=== PATIENT | male | born 1950 | race Caucasian/White ===

== ENCOUNTER 2022-02-21 06:42 | Inpatient (IN) ==
[2022-02-21] MEDS ORDERED: Ondansetron 4 MG/2 ML VIAL ONE (07:32)
[2022-02-21] MEDS ORDERED: *HR* Succinylcholine 200 MG/10 ML VIAL IVP ONE (07:32)
[2022-02-21] MEDS ORDERED: Lidocaine -MPF 2% 5 ML VIAL ONE (07:32)
[2022-02-21] MEDS: Ringers Solution, Lactated 1,000 ML IVC SCH (07:45)
[2022-02-21] MEDS ORDERED: Promethazine 6.25 MG in Water for inj. (sterile) 20 ML IVPB PRN (07:47)
[2022-02-21] MEDS ORDERED: Ondansetron 4 MG/2 ML VIAL IVP PRN ×2 (07:47→09:35)
[2022-02-21] MEDS ORDERED: *HR* HYDROmorphone PF 0.5 MG/0.5 ML SYRINGE IVP PRN (07:47)
[2022-02-21] MEDS ORDERED: *HR* OxyCODONE Immed Rel 5 MG TABLET PO PRN (07:47)
[2022-02-21] MEDS ORDERED: *HR* Propofol 200 MG/20 ML VIAL IVP ONE (08:45)
[2022-02-21] MEDS ORDERED: *HR* EPINEPHrine 1 MG/10 ML SYRINGE INTRATRACH PRN (08:58)
[2022-02-21] MEDS ORDERED: Albuterol 2.5 MG/3 ML NEBULIZER IH PRN (09:35)
[2022-02-21] MEDS ORDERED: Acetaminophen 325 MG TABLET PO PRN (09:35)
[2022-02-21] MEDS ORDERED: Naloxone 0.4 MG/ML INJ IVP PRN (09:35)
[2022-02-21] MEDS: GuaiFENesin/Codeine Oral Soln 5 ML UDC PO PRN ×2 (10:05→20:38)
[2022-02-21] MEDS: Pantoprazole 40 MG VIAL IVP SCH (10:07)
[2022-02-21 10:24] LABS: Basophils % 0.4 %; Eosinophils # 0.1 K/mcL (0.0-0.6); Hematocrit 40.2 % (37.5-50.1); Hemoglobin 13.4 g/dL (12.9-16.9); Immature Granulocytes % 0.2 % (0-4); Lymphocytes # 0.8 K/mcL (0.6-4.6); Lymphocytes % 10.5 %; Mean Corpuscular HGB Conc 33.3 g/dL (31.6-35.5); Mean Corpuscular Hemoglobin 30.1 pg (28.0-33.3); Mean Corpuscular Volume 90.3 fL (83.0-100.0); Mean Platelet Volume 9.3 fL (9.4-12.4); Monocytes # 0.3 K/mcL (0.0-1.3); Monocytes % 3.4 %; Neutrophils # 6.8 K/mcL (1.6-8.9); Platelet Count 171 K/mcL (140-400); Red Blood Count 4.45 M/mcL (4.19-5.50); Red Cell Distribution Width 12.3 % (11.5-14.5); Segmented Neutrophils % 84.5 %
[2022-02-21] MEDS: Ipratropium/Albuterol Neb 3 ML IH SCH ×3 (10:28→21:35)
[2022-02-21 10:41] LABS: BUN/Creatinine Ratio 17 (6-26); Blood Urea Nitrogen 15 mg/dL (8-23); Calcium 9.2 mg/dL (8.6-10.3); Carbon Dioxide 30 mEq/L (23-29); Chloride 104 mEq/L (98-107); Glucose 117 mg/dL (70-105); Magnesium 1.7 mg/dL (1.6-2.6); Osmolality,Calculated 288 (280-300); Phosphorous 2.7 mg/dL (2.7-4.5); Potassium 4.5 mEq/L (3.5-5.1); Sodium 138 mEq/L (136-145); eGFR For African Americans > 60 (> 60); eGFR For Non-African Americans > 60 (> 60)
[2022-02-21] MEDS ORDERED: *HR* HYDROcodone/Acet 5/325 mg TABLET PO PRN (10:43)
[2022-02-21] MEDS: *HR* Heparin 5,000 UNIT/ML VIAL SQ SCH (17:44)
[2022-02-22] MEDS: GuaiFENesin/Codeine Oral Soln 5 ML UDC PO PRN ×3 (02:55→20:12)
[2022-02-22] MEDS: Ipratropium/Albuterol Neb 3 ML IH SCH ×4 (03:41→21:40)
[2022-02-22 04:56] LABS: Hematocrit 37.6 % (37.5-50.1); Hemoglobin 12.5 g/dL (12.9-16.9); Immature Granulocytes % 0.2 % (0-4); Lymphocytes # 1.1 K/mcL (0.6-4.6); Lymphocytes % 11.5 %; Mean Corpuscular HGB Conc 33.2 g/dL (31.6-35.5); Mean Corpuscular Volume 90.2 fL (83.0-100.0); Mean Platelet Volume 10.1 fL (9.4-12.4); Monocytes # 0.5 K/mcL (0.0-1.3); Monocytes % 5.7 %; Neutrophils # 7.8 K/mcL (1.6-8.9); Platelet Count 174 K/mcL (140-400); Red Blood Count 4.17 M/mcL (4.19-5.50); Red Cell Distribution Width 12.3 % (11.5-14.5); Segmented Neutrophils % 82.6 %; White Blood Count 9.4 K/mcL (4.3-11.1)
[2022-02-22 05:11] LABS: BUN/Creatinine Ratio 22 (6-26); Blood Urea Nitrogen 22 mg/dL (8-23); Calcium 8.9 mg/dL (8.6-10.3); Carbon Dioxide 26 mEq/L (23-29); Chloride 103 mEq/L (98-107); Glucose 173 mg/dL (70-105); Magnesium 1.7 mg/dL (1.6-2.6); Osmolality,Calculated 295 (280-300); Phosphorous 2.4 mg/dL (2.7-4.5); Potassium 3.9 mEq/L (3.5-5.1); Sodium 139 mEq/L (136-145); eGFR For African Americans > 60 (> 60); eGFR For Non-African Americans > 60 (> 60)
[2022-02-22] MEDS: *HR* Heparin 5,000 UNIT/ML VIAL SQ SCH ×2 (05:27→18:30)
[2022-02-22] MEDS: Pantoprazole 40 MG VIAL IVP SCH (08:47)
[2022-02-22] MEDS: Melatonin 3 MG TABLET PO PRN (21:25)
[2022-02-23] MEDS: Ipratropium/Albuterol Neb 3 ML IH SCH ×4 (04:24→21:17)
[2022-02-23 05:24] LABS: Basophils # 0.1 K/mcL (0.0-0.2); Basophils % 0.6 %; Eosinophils # 0.2 K/mcL (0.0-0.6); Eosinophils % 2.8 %; Hematocrit 36.3 % (37.5-50.1); Hemoglobin 11.9 g/dL (12.9-16.9); Immature Granulocytes % 0.5 % (0-4); Lymphocytes # 1.8 K/mcL (0.6-4.6); Lymphocytes % 22.5 %; Mean Corpuscular HGB Conc 32.8 g/dL (31.6-35.5); Mean Corpuscular Hemoglobin 29.9 pg (28.0-33.3); Mean Corpuscular Volume 91.2 fL (83.0-100.0); Mean Platelet Volume 9.8 fL (9.4-12.4); Monocytes # 0.7 K/mcL (0.0-1.3); Monocytes % 8.6 %; Neutrophils # 5.2 K/mcL (1.6-8.9); Platelet Count 159 K/mcL (140-400); Red Blood Count 3.98 M/mcL (4.19-5.50); Red Cell Distribution Width 12.7 % (11.5-14.5)
[2022-02-23 05:33] LABS: BUN/Creatinine Ratio 24 (6-26); Blood Urea Nitrogen 22 mg/dL (8-23); Calcium 8.5 mg/dL (8.6-10.3); Carbon Dioxide 29 mEq/L (23-29); Chloride 107 mEq/L (98-107); Glucose 113 mg/dL (70-105); Magnesium 1.9 mg/dL (1.6-2.6); Osmolality,Calculated 294 (280-300); Phosphorous 3.1 mg/dL (2.7-4.5); Potassium 3.7 mEq/L (3.5-5.1); Sodium 140 mEq/L (136-145); eGFR For African Americans > 60 (> 60); eGFR For Non-African Americans > 60 (> 60)
[2022-02-23] MEDS: *HR* Heparin 5,000 UNIT/ML VIAL SQ SCH ×2 (06:30→18:25)
[2022-02-23] MEDS: Pantoprazole 40 MG VIAL IVP SCH (07:35)
[2022-02-23] MEDS: Sennosides/Docusate Sodium TABLET PO SCH (13:31)
[2022-02-23] MEDS ORDERED: methylPREDNISolone 125 MG/2 ML VIAL IVP ONE (14:56)
[2022-02-23] MEDS: GuaiFENesin/Codeine Oral Soln 5 ML UDC PO PRN (20:49)
[2022-02-23] MEDS: Melatonin 3 MG TABLET PO PRN (20:49)
[2022-02-24] MEDS: Ipratropium/Albuterol Neb 3 ML IH SCH ×4 (03:57→21:47)
[2022-02-24] MEDS: *HR* Heparin 5,000 UNIT/ML VIAL SQ SCH ×2 (06:22→16:42)
[2022-02-24] MEDS: Pantoprazole 40 MG VIAL IVP SCH (08:18)
[2022-02-24] MEDS: Sennosides/Docusate Sodium TABLET PO SCH (08:18)
[2022-02-24] MEDS: MethylPREDNISolone 40 MG/ML VIAL IVP SCH ×2 (08:22→16:43)
[2022-02-24] MEDS: Melatonin 3 MG TABLET PO PRN (21:53)
[2022-02-24 22:51] VITALS: TEMP 97.8
[2022-02-25] MEDS: Ringers Solution, Lactated 1,000 ML IVC SCH (02:55)
[2022-02-25] MEDS: Ipratropium/Albuterol Neb 3 ML IH SCH (03:46)
[2022-02-25] MEDS: MethylPREDNISolone 40 MG/ML VIAL IVP SCH (07:17)
[2022-02-25] MEDS: Sennosides/Docusate Sodium TABLET PO SCH (07:17)
[2022-02-25] MEDS: *HR* Heparin 5,000 UNIT/ML VIAL SQ SCH (07:18)
[2022-02-25] MEDS: Pantoprazole 40 MG VIAL IVP SCH (07:18)
[2022-02-25 07:32] VITALS: BP 132/84; O2SAT 94
[2022-02-25 08:38] VITALS: PULSE 73
== END 2022-02-25 08:15 | disposition home or self-care (01) | DRG 164 ==
LOC: SAMDAY 06:42 → ICNU 09:32 → SUATTDRO 09:54
PROVIDERS: ADMIT Internal Medicine Pulmonary Disease; ATTEND Internal Medicine
PROC: ENDOLBX (2022-02-21 07:45)